=== PATIENT | male | born 1985 | race Caucasian/White ===

== ENCOUNTER 2017-09-08 21:37 | Emergency (ER) ==
--- OUTSIDE RECORDS SUMMARY | 2017-09-08 21:38 | XMS REPORT ---
Author Author [facility] Address Unknown Phone Unavailable Care Team Providers Care Edge Kitter Name Role Phone Unavailable Unavailable Problems This patient has no known problems. Allergies, Adverse Reactions, Alerts This patient has no known allergies or adverse reactions. Medications This patient has no known medications. Results Test Description Test Time Test Comments Text Results Atomic Results Result Comments CT, ABDOMEN, WITHOUT 2017-07-24 09:40:00 Reason for Exam:->Benign essential HTN Reason for Exam:->Abnrmality of plasma protein unspecified FINAL REPORT HISTORY : Benign essential HTNAbnormality of plasma protein unspecified Technique: Initially, noncontrast images of the abdomen were obtained. This was followed by multiple axial images of the abdomen with the administration of IV contrast only from the lung bases to the periumbilical region. Delayed images were also obtained. This exam was performed according to our departmental dose optimization program which includes automated exposure control, adjustment of the mA and/or kV according to patient size and/or use of iterative reconstructive technique. COMPARISON : None COMMENT : There is bibasilar linear subsegmental atelectasis versus scarring. The visualized liver , adrenal glands, gallbladder, kidneys, pancreas, stomach and duodenum are within normal limits. There is splenomegaly. There is no abdominal or retroperitoneal lymphadenopathy. The osseous structures as well as the subcutaneous soft tissues are without any abnormalities. There is no free fluid or free air in the abdomen. No findings of any bowel obstruction. The small bowel is within normal limits. There is colonic diverticulosis. There is a long segment thickening identified of the right colon extending from the proximal ascending colon to the level of the mid transverse colon. While the wall thickening could be due to under distention, a degree of nonspecific inflammatory versus infectious versus ischemic colitis cannot be entirely excluded. The appendix is visualized. There are no CT findings to suggest appendicitis. Impression: No adrenal mass/nodule identified by CT. Please see above for details. Signed: Edmund Reideport Verified Date/Time: 2017 09:40:54 Reading Location: [facility] Diagnostic Imaging Reading Room - [place] [id number]
--- OUTSIDE RECORDS SUMMARY | 2017-09-08 21:38 | XMS REPORT | Clinical Summary ---
Author Author HEN[facility] Address Unknown Phone Unavailable Care Team Providers Care Development Chemist Name Role Phone PCP Unavailable Allergies No Known Allergies Current Medications Not on file Active Problems Not on file Encounters Date Type Specialty Care Team Description 07/24/2017 Hospital Radiology Dustin Delgadillo, Benign essential Encounter hypertension;Abnormality of plasma protein 07/22/2017 Outside Orders Central Scheduling Dustin Delgadillo Benign essential hypertension (Primary Dx);Abnormality of plasma protein after 09/07/2016 Social History Tobacco Use Types Packs/Day Years Used Date Never Assessed Sex Assigned at Date Recorded Not on file Last Filed Vital Signs Not on file Plan of Treatment Not on file Results * CT abdomen without & with IV contrast (07/24/2017 9:10 AM) Specimen Performing Laboratory [facility] Narrative FINAL REPORT HISTORY : Benign essential HTN Abnormality of plasma protein unspecified Technique: Initially, noncontrast [...] linear subsegmental atelectasis versus scarring. The visualized liver, adrenal glands, gallbladder, kidneys, pancreas, stomach and [...] Please see above for details. Signed: Edmund Reid MD Report Verified Date/Time:07/24/2017 09:40:54 Reading Location: [facility] Diagnostic Imaging Reading Room - [place] [id number] Procedure Note Interface, External Ris In - 07/24/2017 9:43 AM CDT FINAL REPORT HISTORY : Benign essential HTN Abnormality of plasma protein unspecified Technique: Initially, noncontrast [...] linear subsegmental atelectasis versus scarring. The visualized liver, adrenal glands, gallbladder, kidneys, pancreas, stomach and [...] Please see above for details. Signed: Edmund Reid MD Report Verified Date/Time: 07/24/2017 09:40:54 Reading Location: [facility] Diagnostic Imaging Reading Room - [place] [id number] after 09/07/2016
== END 2017-09-08 21:48 | disposition left against medical advice (07) ==
LOC: ER 21:37
DX: Z77.098 Contact with and (suspected) exposure to other hazardous, chiefly nonmedicinal, chemicals (principal); Z53.21 Procedure and treatment not carried out due to patient leaving prior to being seen by health care provider